=== PATIENT | male | born 1965 | race Caucasian/White ===

== ENCOUNTER 2016-11-09 03:28 | Emergency (ER) | payer OTHER ==
--- NOTE | ~2016-11-09 | EKG ---
PATIENT: HELADIO REID UNIT #: [id number] Ventricular Rate: 99 BPM Atrial Rate: 99 BPM P-R Interval: 118 ms QRS Duration: 80 ms Q-T Interval: 352 ms QTC Calculation(Bezet): 451 ms P [place]: 49 degrees Calculated R [place]: -8 degrees Calculated T [place]: 58 degrees Diagnosis Line: Normal sinus rhythm Diagnosis Line: RSR' or QR pattern in V1 suggests right Diagnosis Line: ventricular conduction delay Diagnosis Line: Borderline ECG Diagnosis Line: No previous ECGs available Diagnosis Line: Confirmed by KATELYN ANDRES MD ([id number]) on Diagnosis Line: 11/09/2016 10:47:13 PM INTERPRETING MD: MALIA
--- NOTE | ~2016-11-09 | CR72 ---
[facility] A Service of [facility] & [facility] RADIOLOGY TEXT RESULTS PATIENT: HELADIO REID LOCATION: [facility] : 63 UNIT #: [id number] AGE: [address]: Marcelo Bloom MD SEX: M ORDER DR: [id number] [facility] [address] [place] [place], [place] [address] [id number] E MR#: [id number] Acc #: [id number] NAME: HELADIO REID : 1965 SEX: M STUDY DATE/TIME: 11/09/2016 4:11 UNIT: [facility] ROOM: STUDY DESCRIPTION: CR Chest Single View Portable Attending Physician: Marcelo Bloom M.D. Ordering Physician: Marcelo Bloom M.D. Primary Care Physician: No Primary Care Physician MEDICAL IMAGING REPORT This report is preliminary unless electronic signature is present EXAM Portable chest INDICATION Epigastric and lower chest pain for the past month. PROCEDURE Frontal view chest. COMPARISON 09/29/2012 FINDINGS Upper limits of normal heart size. No dense consolidation, pleural fluid, or pneumothorax. IMPRESSION No active process. Dictated by... Florian Leon M.D. THIS IS AN ELECTRONICALLY VERIFIED REPORT Florian Leon M.D. at 11/09/2016 10:23 PM JULIA/vicki TD: 11/09/2016 08:26 JOB #: [id number] MEDICAL IMAGING REPORT Page 1 of 1 COPY
[~2016-11-09 03:28] MED LIST: DILANTIN PO; LEXAPRO PO; PHENOBARB PO; SCHIZOPHRENIA MED; VICODIN PO
[2016-11-09 04:15] LABS: POC - CKMB <1.0 ng/mL (0.0-7.9); POC - TROPONIN <0.05 ng/mL (<=0.05)
[2016-11-09 04:42] LABS: BASOPHIL% 0.2 % (0-2.5); EOSINOPHIL# 0.1 X10e3 (0-0.7); EOSINOPHIL% 0.8 % (0.0-7.0); HEMATOCRIT 34.1 % (38.0-50.0); HEMOGLOBIN 11.5 gm/dL (13.0-16.0); LYMPHOCYTE# 0.8 X10e3 (1.0-3.5); LYMPHOCYTE% 8.4 % (17.0-45.0); MEAN CELL VOLUME 89.2 FL (83-96); MEAN CORPUSCULAR HEMOGLOBIN 30.2 PG (28-34); MEAN CORPUSCULAR HGB CONC 33.8 g/dL (30-36); MEAN PLATELET VOLUME 7.7 FL (6.5-11.5); MONOCYTE# 0.6 X10e3 (0-1.0); MONOCYTE% 5.7 % (3.0-12.0); NEUTROPHIL# 8.5 X10e3 (1.5-7.1); NEUTROPHIL% 84.9 % (40-75); PLATELET COUNT 275 X10e3 (140-420); RED BLOOD COUNT 3.83 X10e (3.90-5.60); RED CELL DISTRIBUTION WIDTH 14.6 % (11.0-15.5)
[2016-11-09 04:45] LABS: DIFF IND NO
[2016-11-09 04:54] LABS: URINE SOURCE CLEAN CATCH
[2016-11-09 04:58] LABS: URINE APPEARANCE CLEAR; URINE BILIRUBIN NEG (NEG); URINE BLOOD NEG (NEG); URINE COLOR YELLOW; URINE GLUCOSE NEG (NEG); URINE KETONE TRACE (NEG); URINE LEUKOCYTE ESTERASE NEG (NEG); URINE NITRATE NEG (NEG); URINE PH 6.5 (5-8); URINE PROTEIN NEG (NEG); URINE SPECIFIC GRAVITY 1.017 (1.003-1.035)
[2016-11-09 05:01] LABS: CULTURE INDICATED? NO
[2016-11-09 05:06] LABS: ALBUMIN SERUM 3.5 g/dL (3.5-5.0); BILIRUBIN, DIRECT 0.1 mg/dL (0.0-0.2); BILIRUBIN,INDIRECT 0.1 mg/dL (0.0-0.9); BILIRUBIN,TOTAL 0.2 mg/dL (0.2-2.0); BUN/CREATININE RATIO 15.71; CALCIUM SERUM 8.5 mg/dL (8.4-10.2); CREATININE SERUM 0.7 mg/dL (0.6-1.4); GLOM FILT RATE Estimated 108.5 mL/min (>60); PROTEIN TOTAL SERUM 6.3 g/dL (6.0-8.3)
[2016-11-09 05:08] LABS: POTASSIUM 2.9 mmol/L (3.5-5.1)
== END 2016-11-09 06:08 | disposition home or self-care (01) ==
LOC: CED 03:28
PROVIDERS: Emergency Medicine
DX: R10.13 Epigastric pain (principal); Z88.0 Allergy status to penicillin
CPT/HCPCS: 36415; 71010; 80048; 80076; 81003; 82553; 83690; 84484; 85025; 93005; 99284